=== PATIENT | female | born 2000 | race Caucasian/White ===

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

== ENCOUNTER 2019-11-08 08:51 | Observation (INO) | payer BC ==
[2019-11-08 10:02] VITALS: BP 138/80
[2019-11-08 11:01] LABS: Hematocrit 27.2 % (35-47); Hemoglobin 8.7 gm/dl (12.0-16.0); Mean Cell Volume 84.5 fl (78-100); Mean Platelet Volume 11.3 fl (7.5-11.0); Platelet Count 280 K/mm3 (150-450); Red Blood Count 3.22 M/mm3 (4.1-5.4); Red Cell Distribution Width 13.2 % (11.5-14.0); White Blood Count 12.5 K/mm3 (4.0-10.5)
[2019-11-08 11:15] LABS: ALBUMIN 3.5 g/dL (3.5-5.0); ALKALINE PHOSPHATASE 100 U/L (38-126); ANION GAP 7.3 MEQ/L (5-15); BLOOD UREA NITROGEN 6 mg/dL (7-17); CHLORIDE 108 mmol/L (98-107); Calcium 9.1 mg/dL (8.4-10.2); Carbon Dioxide 25 mmol/L (22-30); Creatinine 1 0.52 mg/dL (0.52-1.04); Glucose 85 mg/dL (74-106); Potassium 4.4 mmol/L (3.5-5.1); SGOT/AST 18 U/L (14-36); SODIUM 135 mmol/L (137-145); Total Protein 6.6 g/dL (6.3-8.2); Uric Acid 4.7 mg/dL (2.6-6.0)
[2019-11-08 11:17] LABS: SGPT/ALT 5 U/L (0-35)
[2019-11-08 11:34] LABS: Eosinophil 3 % (0.00-3.0); Lymphocytes 17 % (24-44); Monocyte 3 % (0.0-12.0); Neutrophils 77 % (36.0-66.0); Total Cells Counted 100
[2019-11-08 11:35] LABS: ANISOCYTOSIS 1+; Hypochromia 1+; Platelet Estimate NORMAL (NORMAL); Polychromasia 1+
--- NOTE | 2019-11-08 11:58 | XRAY ---
Indication: High-risk . Cervical length. 2-dimensional OB ultrasound performed. Comparison: July 28, 2019. There is again a single viable intrauterine in cephalic presentation. heart rate 139 bpm. anatomy previously documented. Visualized stomach and bladder appear unremarkable. Again posterior placenta without abruption/previa. Cervical length is 3.1 cm. BPD measures 9.06 cm corresponding to 36 weeks 5 days. HC measures 32.22 cm corresponding to 36 weeks 3 days. AC measures 31.36 cm corresponding to 35 weeks 2 days. FL measures 6.67 cm corresponding to 34 weeks 2 days. HUNG is 20.4 cm. Impression: Again single viable intrauterine with mean gestational age 35 weeks 5 days. Normal progression of with fetus now measuring 9 days larger. No new/acute findings.
== END 2019-11-08 10:40 | disposition home or self-care (01) ==
LOC: OB 08:51 → WHC 08:51 → UNDOADMOB 09:30 → OB 09:30 → UNDODISOB 10:40
PROVIDERS: ADMIT Obstetrics & Gynecology; ATTEND Obstetrics & Gynecology
DX: O09.93 Supervision of high risk pregnancy, unspecified, third trimester (principal); Z3A.34 34 weeks gestation of pregnancy
CPT/HCPCS: 36415; 59025; 76805; 80053; 84550; 85025; G0378; 59425; 81002

== ENCOUNTER 2019-11-22 12:57 | Observation (INO) | payer BC ==
[2019-11-22 14:35] VITALS: BP 129/82; PULSE 103
== END 2019-11-22 14:55 | disposition home or self-care (01) ==
LOC: WHC 12:57 → OB 13:13 → UNDOADMOB 13:13 → UNDODISOB 14:55
PROVIDERS: ADMIT Obstetrics & Gynecology; ATTEND Obstetrics & Gynecology
DX: O13.3 Gestational [pregnancy-induced] hypertension without significant proteinuria, third trimester (principal); Z3A.36 36 weeks gestation of pregnancy
CPT/HCPCS: 59025; G0378; 59425

== ENCOUNTER 2019-11-26 10:04 | Observation (INO) | payer BC ==
[2019-11-26 10:22] VITALS: BP 147/92; PULSE 105
[2019-11-26 10:57] LABS: Hematocrit 30.4 % (35-47); Hemoglobin 9.7 gm/dl (12.0-16.0); Mean Cell Volume 88.6 fl (78-100); Mean Corpuscular Hemoglobin 28.3 pg (26-32); Mean Corpuscular Hgb Concent. 31.9 g/dl (32-36); Mean Platelet Volume 11.4 fl (7.5-11.0); Platelet Count 215 K/mm3 (150-450); Red Blood Count 3.43 M/mm3 (4.1-5.4); Red Cell Distribution Width 19.2 % (11.5-14.0); White Blood Count 13.4 K/mm3 (4.0-10.5)
[2019-11-26 11:12] LABS: ALBUMIN 3.5 g/dL (3.5-5.0); ALKALINE PHOSPHATASE 126 U/L (38-126); ANION GAP 10.9 MEQ/L (5-15); BLOOD UREA NITROGEN 10 mg/dL (7-17); CHLORIDE 108 mmol/L (98-107); Calcium 8.9 mg/dL (8.4-10.2); Carbon Dioxide 22 mmol/L (22-30); Creatinine 1 0.53 mg/dL (0.52-1.04); Glucose 103 mg/dL (74-106); Potassium 3.8 mmol/L (3.5-5.1); SGOT/AST 19 U/L (14-36); SGPT/ALT 8 U/L (0-35); SODIUM 137 mmol/L (137-145); Total Protein 6.6 g/dL (6.3-8.2); Uric Acid 5.8 mg/dL (2.6-6.0)
[2019-11-26 11:46] LABS: Eosinophil 7 % (0.00-3.0); Lymphocytes 24 % (24-44); Monocyte 7 % (0.0-12.0); Neutrophils 62 % (36.0-66.0); Platelet Estimate NORMAL (NORMAL); Total Cells Counted 100
[2019-11-26 11:47] LABS: Polychromasia 1+
== END 2019-11-26 12:05 | disposition home or self-care (01) ==
LOC: OB 10:04
PROVIDERS: ADMIT Obstetrics & Gynecology; ATTEND Obstetrics & Gynecology
DX: Z34.03 Encounter for supervision of normal first pregnancy, third trimester (principal)
CPT/HCPCS: 36415; 59025; 80053; 81002; 84550; 85025; G0378

== ENCOUNTER 2019-11-29 13:03 | Observation (INO) | payer BC ==
[2019-11-29 14:28] VITALS: BP 121/80; PULSE 82
--- NOTE | 2019-11-29 15:03 | XRAY ---
Indication: Hypertension. Ultrasound biophysical profile study was performed. Comparison: November 23, 2019. Again there is a single viable intrauterine currently in cephalic presentation. heart rate 159 BPM. Four-quadrant HUNG is 21.6 cm, previously 14.8 cm. 2 points given for breathing, movements, tone, and qualitative amniotic fluid volume. Impression: Total biophysical profile score is again 8 out of 8.
== END 2019-11-29 15:00 | disposition home or self-care (01) ==
LOC: OB 13:03 → WHC 13:03 → OB 13:24 → WHC 13:24 → EDSTATUS 13:49 → OB 14:05
PROVIDERS: ADMIT Obstetrics & Gynecology; ATTEND Obstetrics & Gynecology
DX: O13.3 Gestational [pregnancy-induced] hypertension without significant proteinuria, third trimester (principal); Z3A.37 37 weeks gestation of pregnancy
CPT/HCPCS: 59025; 59425; 76819; 81002; G0378

== ENCOUNTER 2019-12-03 14:49 | Inpatient (IN) | payer BC ==
[2019-12-03] MEDS ORDERED: TYLENOL EXTRA STRENGTH 500 MG PO PRN (18:00)
[2019-12-03] MEDS ORDERED: STADOL 2 MG IV PRN (18:00)
[2019-12-03] MEDS ORDERED: Phenergan 25 MG INJ IV PRN (18:00)
[2019-12-03] MEDS ORDERED: XYLOCAINE 1% HCL 20 ML MDV IJ PRN (18:00)
[2019-12-03] MEDS ORDERED: Nubain 10 MG/ML IV PRN (18:00)
[2019-12-03] MEDS ORDERED: PITOCIN 30 UNITS/ LR 500 ML 500 ML IV SCH (18:00)
[2019-12-03] MEDS ORDERED: Zofran 4 MG/2 ML VIAL IV PRN (18:00)
[2019-12-03] MEDS: CYTOTEC PO SCH ×3 (19:41→23:53)
[2019-12-03 20:28] LABS: ALBUMIN 3.8 g/dL (3.5-5.0); ALKALINE PHOSPHATASE 146 U/L (38-126); BLOOD UREA NITROGEN 10 mg/dL (7-17); CHLORIDE 106 mmol/L (98-107); Calcium 9.1 mg/dL (8.4-10.2); Carbon Dioxide 21 mmol/L (22-30); Creatinine 1 0.54 mg/dL (0.52-1.04); Glucose 86 mg/dL (74-106); Potassium 4.2 mmol/L (3.5-5.1); SGOT/AST 21 U/L (14-36); SGPT/ALT 7 U/L (0-35); SODIUM 135 mmol/L (137-145); Total Protein 7.3 g/dL (6.3-8.2)
[2019-12-03 20:36] LABS: Absolute Neutrophil Ct (ANC) 7.31 (1.4-6.9); BASOPHIL % 0.4 % (0.0-0.4); Basophil (Absolute #) 0.05 (0-0.4); Eosinophil (Absolute #) 0.45 (0-0.5); Hematocrit 33.8 % (35-47); Lymphocyte (Absolute #) 2.17 (1.0-4.6); Lymphocytes % 19.1 % (24.0-44.0); Mean Cell Volume 88.5 fl (78-100); Mean Corpuscular Hemoglobin 28.8 pg (26-32); Mean Corpuscular Hgb Concent. 32.5 g/dl (32-36); Mean Platelet Volume 12.2 fl (7.5-11.0); Monocyte (Absolute #) 1.36 (0.0-1.3); Neutrophil % 64.5 % (36.0-66.0); Platelet Count 224 K/mm3 (150-450); Red Blood Count 3.82 M/mm3 (4.1-5.4); Red Cell Distribution Width 21.4 % (11.5-14.0); White Blood Count 11.3 K/mm3 (4.0-10.5)
[2019-12-03 20:37] LABS: Amphetamine,Urine NEGATIVE (NEGATIVE); Barbiturate,Urine NEGATIVE (NEGATIVE); Benzodiazepine,Urine NEGATIVE (NEGATIVE); Cocaine,Urine NEGATIVE (NEGATIVE); Methadone,Urine NEGATIVE (NEGATIVE); Opiate,Urine NEGATIVE (NEGATIVE); PCP,Urine NEGATIVE (NEGATIVE); THC,Urine NEGATIVE (NEGATIVE)
[2019-12-04] MEDS: CYTOTEC PO SCH ×4 (01:59→06:02)
[2019-12-04] MEDS ORDERED: Lactated Ringers 1,000 ML IV ONE (08:15)
[2019-12-04] MEDS ORDERED: OB EPIDURAL NAROPIN/SUFENTANIL IN NACL EPIDURAL PRN (08:15)
[2019-12-04] MEDS ORDERED: Ephedrine Sulfate 50 MG/ML IV PRN (08:15)
[2019-12-04 08:41] LABS: INR 0.93 (0.8-3.0); PROTIME 10.5 SECONDS (9.95-12.35)
[2019-12-04] MEDS: Lactated Ringers 1,000 ML IV SCH ×2 (08:48→14:58)
[2019-12-04] MEDS ORDERED: XYLOCAINE 2%/Epi 1:200000 20ML VIAL MPF ONE (13:55)
[2019-12-04] MEDS ORDERED: Pitocin 10 UNITS/ML ONE (20:01)
[2019-12-04] MEDS ORDERED: Pitocin 10 UNITS/ML IM ONE (20:05)
[2019-12-04] MEDS ORDERED: Adacel Vial IM ONE (20:41)
[2019-12-04] MEDS ORDERED: Restoril 15 MG PO PRN (20:41)
[2019-12-04] MEDS ORDERED: TUCKS TP PRN (20:41)
[2019-12-04] MEDS ORDERED: CORTISONE 1% CREAM TP PRN (20:41)
[2019-12-04] MEDS ORDERED: Anucort-HC SUPPOSITORY PR PRN (20:41)
[2019-12-04] MEDS ORDERED: Dulcolax 10 MG SUPP PR PRN (20:41)
[2019-12-04] MEDS ORDERED: Mylicon 80MG PO PRN (20:41)
[2019-12-04] MEDS: NORCO 5/325 MG PO PRN (22:04)
[2019-12-04] MEDS: Colace 100 MG PO SCH (22:04)
[2019-12-05] MEDS: NORCO 5/325 MG PO PRN ×2 (04:05→09:20)
[2019-12-05] MEDS: Dermoplast Spray TP PRN ×2 (04:06→22:34)
[2019-12-05 05:27] LABS: BASOPHIL % 0.2 % (0.0-0.4); Basophil (Absolute #) 0.03 (0-0.4); Eosinophil % 0.2 % (0.00-5.0); Eosinophil (Absolute #) 0.03 (0-0.5); Hematocrit 29.7 % (35-47); Hemoglobin 9.4 gm/dl (12.0-16.0); Lymphocyte (Absolute #) 2.18 (1.0-4.6); Lymphocytes % 10.9 % (24.0-44.0); Mean Cell Volume 89.7 fl (78-100); Mean Corpuscular Hemoglobin 28.4 pg (26-32); Mean Corpuscular Hgb Concent. 31.6 g/dl (32-36); Mean Platelet Volume 12.3 fl (7.5-11.0); Monocyte (Absolute #) 1.63 (0.0-1.3); Monocytes % 8.2 % (0.0-12.0); Neutrophil % 80.5 % (36.0-66.0); Platelet Count 180 K/mm3 (150-450); Red Blood Count 3.31 M/mm3 (4.1-5.4); Red Cell Distribution Width 21.3 % (11.5-14.0)
[2019-12-05] MEDS ORDERED: Rhogam Plus 300 MCG IM ONE (08:00)
[2019-12-05] MEDS: Colace 100 MG PO SCH ×2 (09:20→21:35)
[2019-12-05 09:24] LABS: Slide Review 1 YES
[2019-12-05] MEDS ORDERED: BABY ASPIRIN 81 MG CHEW PO SCH (10:00)
[2019-12-05] MEDS ORDERED: FERREX 150 PO SCH (10:00)
[2019-12-05] MEDS ORDERED: ECOTRIN 81 MG PO SCH (10:00)
[2019-12-05] MEDS: MOTRIN 400 MG PO PRN ×2 (16:22→22:34)
[2019-12-05] MEDS ORDERED: ZOLOFT 50 MG TABLET PO SCH (20:04)
[2019-12-05 22:28] VITALS: O2SAT 99
[2019-12-06] MEDS: MOTRIN 400 MG PO PRN (04:22)
[2019-12-06 08:24] VITALS: BP 131/88; PULSE 67
[2019-12-06] MEDS ORDERED: ZOLOFT 50 MG TABLET PO SCH (10:00)
--- NOTE | 2019-12-06 15:01 | PCM.DS ---
Discharge Summary Date of Admission: 12/04/19 07:55 Date of Discharge: december 06, 2019 Admitting Physician: KESHIA CASAS DO Consults: Consults on Case 12/04/19 20:41 Notify Physician Primary Care Provider: LISE ALICEA Allergies Allergies No Known Drug Allergies Allergy (Verified 08/09/18 05:46) Hospital Summary - Vitals & Intake/Output Vital Signs: Vital Signs Temperature 97.6 F 12/06/19 08:16 Pulse Rate 67 12/06/19 08:16 Respiratory Rate 18 12/06/19 08:16 Blood Pressure 131/88 12/06/19 08:16 O2 Sat by Pulse Oximetry 99 12/05/19 20:00 Intake & Output: Intake & Output 12/04/19 12/05/19 12/06/19 12/07/19 11:59 11:59 11:59 11:59 Intake Total 800 1020 Output Total 3200 Balance 800 -2180 Weight 81.647 kg - Lab Result Diagrams: 12/05/19 05:04 12/03/19 20:24 Micro Results-Entire Visit: Microbiology 12/04/19 Unknown Urine Culture - Final Urine, Catheterized NO GROWTH - Procedures and Test Procedures and Tests throughout Hospitalization: Therapy Orders & Screens 12/03/19 19:17 Smoking Cessation Education ONCE Comment: Diagnosis: IUP Smoking Status: Current every day smoker How long have you smoked: 2 yrs Have you smoked in the past 12 months: Yes Approximately how many cigarettes per day: vaping Do you dip or chew tobacco: No 12/04/19 22:46 Standby STAT Comment: Diagnosis: IUP Final Diagnosis/Problem List - Final Discharge Diagnosis/Problem (1) Gestational hypertension Status: Chronic Assessment & Plan: pt induced secondary to gestational htn delievered live baby girl via after cytotec induction with subsequent pitocin Code(s): O13.9 - GESTATIONAL HTN W/O SIGNIFICANT PROTEINURIA, UNSP TRIMESTER (2) Labor without complication Status: Acute Code(s): O80 - ENCOUNTER FOR FULL-TERM UNCOMPLICATED DELIVERY - Discharge Disposition: Home, Self-Care Condition: Stable Prescriptions: New Ibuprofen 600 mg PO Q6HPRN PRN #42 tablet PRN Reason: Pain Ferrous Sulfate 325 mg [Feosol 325 mg] 325 mg PO DAILY 30 Days #30 tablet No Action Aspirin EC 81 mg [Ecotrin 81 mg] 162 mg PO DAILY Sertraline HCl 50 mg [Zoloft 50 mg Tablet] 50 mg PO DAILY Vits W-Ca,Fe,FA(<1Mg) [] 1 each PO DAILY Acetaminophen 500 mg [Tylenol Extra Strength 500 mg] 1,000 mg PO Q6H PRN PRN Reason: Pain Ferrous Sulfate 325 mg [Feosol 325 mg] 325 mg PO TID Instructions: Vaginal Delivery (DC), Maternal Injuries From Childbirth Additional Instructions: CONTINUE TAKING 2 TAB 81MG ASPIRIN FOR 6 WEEKS AFTER DELIVERY. CONTINUE TAKING ZOLOFT PREVIOUSLY PRESCRIBED. CALL OB WITH ANY QUESTIONS, COMMENTS OR CONCERNS YOU MAY HAVE. FOLLOW UP WITH DR CASAS IN 6 WEEKS FOR VISIT. Follow up with: KESHIA CASAS DO [ACTIVE STAFF] - (FOLLOW UP TO DR CASAS'S OFFICE IN 6 WEEKS FOR FOLLOW UP VISIT. ) Forms: OB Discharge Instructions
--- NOTE | 2019-12-06 15:04 | PCM.DCORD ---
- Discharge Disposition: Home, Self-Care Condition: Stable Prescriptions: New Ibuprofen 600 mg PO Q6HPRN PRN #42 tablet PRN Reason: Pain Ferrous Sulfate 325 mg [Feosol 325 mg] 325 mg PO DAILY 30 Days #30 tablet No Action Aspirin EC 81 mg [Ecotrin 81 mg] 162 mg PO DAILY Sertraline HCl 50 mg [Zoloft 50 mg Tablet] 50 mg PO DAILY Vits W-Ca,Fe,FA(<1Mg) [] 1 each PO DAILY Acetaminophen 500 mg [Tylenol Extra Strength 500 mg] 1,000 mg PO Q6H PRN PRN Reason: Pain Ferrous Sulfate 325 mg [Feosol 325 mg] 325 mg PO TID Instructions: Vaginal Delivery (DC), Maternal Injuries From Childbirth Additional Instructions: CONTINUE TAKING 2 TAB 81MG ASPIRIN FOR 6 WEEKS AFTER DELIVERY. CONTINUE TAKING ZOLOFT PREVIOUSLY PRESCRIBED. CALL OB WITH ANY QUESTIONS, COMMENTS OR CONCERNS YOU MAY HAVE. FOLLOW UP WITH DR CASAS IN 6 WEEKS FOR VISIT. Follow up with: KESHIA CASAS DO [ACTIVE STAFF] - (FOLLOW UP TO DR CASAS'S OFFICE IN 6 WEEKS FOR FOLLOW UP VISIT. ) Forms: OB Discharge Instructions
== END 2019-12-06 09:47 | disposition home or self-care (01) | DRG 807 ==
LOC: UNDOADMOB 17:58 → OB 17:58 → OBSVTOIN 12-04 07:55 → MED SURG 12-04 22:42
PROVIDERS: ADMIT Obstetrics & Gynecology; ATTEND Obstetrics & Gynecology
PROC: 10E0XZZ Delivery of Products of Conception, External Approach (ICD-10-PCS; principal; 2019-12-04)
PROC: 0HQ9XZZ Repair Perineum Skin, External Approach (ICD-10-PCS; 2019-12-04)
DX: O13.4 Gestational [pregnancy-induced] hypertension without significant proteinuria, complicating childbirth (principal); Z37.0 Single live birth; O70.0 First degree perineal laceration during delivery; Z3A.38 38 weeks gestation of pregnancy
CPT/HCPCS: 36415; 80053; 80307; 84550; 85025; 85610; 87086; 87340; 94799; 96372; G0378; J2590; J2795; A9270-GY